=== PATIENT | female | born 1945 | race Caucasian/White ===

== ENCOUNTER 2020-08-13 12:52 | Emergency (ER) | payer OTHER ==
[~2020-08-13] VITALS: Ht 154.9 cm; Wt 56.7 kg
[2020-08-13 14:19] LABS: ABSOLUTE NEUTROPHILS 3.3 thou/uL (1.4-8.2); BASOPHILS 0.6 % (0.0-2.0); EOSINOPHILS 3.9 % (0.0-3.0); HEMATOCRIT 38.6 % (37.0-47.0); LYMPHOCYTES 27.5 % (24.0-44.0); MCH 30.8 pg (26.0-34.0); MCHC 33.7 g/dL (28.0-37.0); MCV 91.6 fL (80.0-100.0); MONOCYTES 10.2 % (1.0-8.0); PLATELET COUNT 222 thou/uL (150-400); POLYS 57.8 % (36.0-66.0); RBC 4.21 mil/uL (4.20-5.00); RDW 13.1 % (10.5-14.5); WBC 5.8 thou/uL (4.0-11.0)
[2020-08-13 14:26] LABS: CALCIUM 9.8 mg/dL (8.5-10.1); CREATININE 0.8 mg/dL (0.6-1.0); POTASSIUM 4.1 mmol/L (3.5-5.1)
[2020-08-13 14:32] LABS: ALBUMIN 4.1 g/dL (3.4-5.0); TOTAL BILIRUBIN 0.4 mg/dL (0.2-1.0)
[2020-08-13 15:03] VITALS: BP 157/69
[2020-08-13] MEDS ORDERED: BUTALB-APAP-CA1 EACH PO (15:31)
--- NOTE | 2020-08-14 07:38 | EKG ---
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 : 1945 Requested By: Anil Pacheco Order Number: [id number] MD: Rodger Mccurdy Measurements Intervals [place] Rate: 75 P: 64 NH: 120 QRS: 31 QRSD: 93 T: 25 QT: 392 QTc: 438 Interpretive Statements Sinus rhythm Nonspecific ST and T wave abnormality Compared to ECG 08/09/2003 18:09:[address] and T wave abnormality is not present Electronically Signed On 08-14-2020 7:38:26 [employer]URANCE ANALYST by Rodger Mccurdy [email or web address] <ELECTRONICALLY SIGNED> By: Rodger Mccurdy MD, [facility] 08/14/20 0738 1330 1330 Rodger Mccurdy MD, FACC /EPI
== END 2020-08-13 15:36 | disposition home or self-care (01) ==
LOC: ER 12:52
PROVIDERS: Physician Assistant
DX: G43.909 Migraine, unspecified, not intractable, without status migrainosus (principal); I10 Essential (primary) hypertension; R42 Dizziness and giddiness